=== PATIENT | male | born 1985 | race Caucasian/White ===

== ENCOUNTER 2021-12-19 08:08 | Emergency (ER) | payer SELFPAY ==
[2021-12-19] MEDS ORDERED: ISOVUE-370 76%-LOCM 1 ML ONE (08:29)
[2021-12-19] MEDS ORDERED: Ondansetron PF 4 MG/2 ML Vial ONE (08:30)
[2021-12-19] MEDS ORDERED: Morphine 4 MG/ML VIAL ONE (08:30)
[2021-12-19 08:47] LABS: #Eosinphils 0.1 thou/uL (0.0-0.7); #Lymphocytes 1.7 thou/uL (1.20-3.40); #Monocytes 0.4 thou/uL (0.11-0.59); #Neutrophils 4.4 thou/uL (1.40-6.50); %Basophils 0.5 % (0.0-1.0); %Lymphocytes 25.3 % (21.0-51.0); %Monocytes 5.9 % (0.0-10.0); %Neutrophils 67.3 % (42.0-75.0); Hemoglobin 16.8 g/dL (14.0-18.0); Mean Corpuscular HGB CONC 34.4 g/dL (32.0-36.0); Mean Corpuscular Hemoglobin 30.9 pg (27.0-31.0); Mean Corpuscular Volume 89.7 fL (78.0-98.0); Mean Platelet Volume 8.1 fL (7.4-10.4); Platelet Count 228 thou/uL (130-400); RBC Distribution Width 11.8 % (11.5-14.5); Red Blood Cell (RBC) Count 5.46 mill/uL (4.70-6.10); White Blood Cell (WBC) Count 6.6 thou/uL (4.8-10.8)
[2021-12-19 09:12] LABS: ALT (SGPT) 38 U/L (8-55); AST (SGOT) 30 U/L (5-34); Albumin 4.5 g/dL (3.5-5.0); Alkaline Phosphatase 60 U/L (40-110); Anion Gap 15 mmol/L (10-20); BUN (Urea Nitrogen) 12 mg/dL (8.9-20.6); Bilirubin, Total 1.1 mg/dL (0.2-1.2); CK (CPK) 59 U/L (30-200); Calc. Creatinine Clearance 0 mL/min (70-130); Calcium 9.5 mg/dL (7.8-10.44); Carbon Dioxide 24 mmol/L (22-29); Chloride 106 mmol/L (98-107); Estimated GFR 118; Globulin 3.3 g/dL (2.4-3.5); Glucose 104 mg/dL (70-105); Lipase 15 U/L (8-78); Potassium 3.6 mmol/L (3.5-5.1); Protein, Total 7.8 g/dL (6.0-8.3); Sodium 141 mmol/L (136-145)
== END 2021-12-19 10:05 | disposition home or self-care (01) ==
LOC: ERS 08:08
DX: K52.9 Noninfective gastroenteritis and colitis, unspecified (principal); E86.0 Dehydration
CPT/HCPCS: 74177; 80053; 82550; 83690; 85025; 93005; 96361; 96374; 96375; J2270; J2405; Q9966